=== PATIENT | female | born 1950 | race Two or more races ===

== ENCOUNTER 2017-05-30 09:01 | Day surgery (SDC) | payer OTHER ==
[2017-05-30] MEDS ORDERED: FENTAnyl 50 MCG/ML VIAL (10:34)
[2017-05-30] MEDS ORDERED: MIDAZOLAM 1 MG/ML 2 ML INJ ×2 (10:34)
== END 2017-05-30 12:05 | disposition home or self-care (01) ==
LOC: GIL 09:01
DX: Z12.11 Encounter for screening for malignant neoplasm of colon (principal); D12.0 Benign neoplasm of cecum; K64.4 Residual hemorrhoidal skin tags; E11.9 Type 2 diabetes mellitus without complications
CPT/HCPCS: 45380; 82962; 88305

== ENCOUNTER → 2017-07-21 | Outpatient (CLI) | payer OTHER | END | disposition home or self-care (01) | LOC: HKI 13:47 | DX: Z01.818 Encounter for other preprocedural examination (principal) | CPT/HCPCS: Z7500 ==

== ENCOUNTER 2017-07-24 10:36 | Inpatient (IN) | payer OTHER ==
[2017-07-24] MEDS: TRANEXAMIC ACID 1,000 MG in SOD CHLORIDE 0.9% 100 ML IV ×2 (12:00→14:00)
[2017-07-24] MEDS: CEFAZOLIN 2 GM/50 ML (PMX) 50 ML IVPB (12:00)
[2017-07-24] MEDS: LACTATED RINGER'S 1,000 ML IV* (12:00)
[2017-07-24] MEDS: ACETAMINOPHEN 1000MG/100ML IV 100 ML IVPB (12:29)
[2017-07-24] MEDS: ONDANSETRON 4 MG INJ IV ×3 (12:29→21:03)
[2017-07-24] MEDS: LANSOPRAZOLE 30 MG CAP PO (12:30)
[2017-07-24] MEDS: CELECOXIB 200 MG CAP PO (12:30)
[2017-07-24] MEDS: DEXAMETHASONE 4 MG/ML 1 ML INJ IV (12:30)
[2017-07-24] MEDS: oxyCODONE (CR) 10 MG TAB [oxyCONTIN] PO (12:31)
[2017-07-24 13:17] LABS: INR 0.93; PROTIME 12.6 Sec (11.9-14.9)
[2017-07-24 13:18] LABS: PARTIAL THROMBOPLASTIN TIME 29.3 Sec (25.0-35.0)
[2017-07-24] MEDS ORDERED: morphine SULFATE/PF (10 MG/10 ML) INJ (14:01)
[2017-07-24] MEDS ORDERED: MIDAZOLAM 1 MG/ML 2 ML INJ (14:01)
[2017-07-24] MEDS ORDERED: ONDANSETRON 4 MG INJ (14:01)
[2017-07-24] MEDS ORDERED: METOCLOPRAMIDE 10 MG INJ (14:01)
[2017-07-24] MEDS ORDERED: PROPOFOL 20 ML (14:01)
[2017-07-24] MEDS: BACITRACIN 50000 UNITS INJ IRR (14:03)
[2017-07-24] MEDS: POLYMYXIN B 500000 UNIT INJ (14:03)
[2017-07-24] MEDS: POLYMYXIN/BACITRACIN 1L IRRIG (14:03)
[2017-07-24] MEDS ORDERED: FENTAnyl 50 MCG/ML VIAL (14:26)
[2017-07-24] MEDS ORDERED: SUCCINYLCHOLINE CHLORIDE 100 MG/5 ML SYG IV (14:37)
[2017-07-24] MEDS ORDERED: PROVENTIL HFA 6.7GM INHALER (14:49)
[2017-07-24] MEDS ORDERED: ROCURONIUM 50 MG INJ (15:12)
[2017-07-24] MEDS ORDERED: EPHEDrine SULFATE 50 MG/5 ML SYG (15:12)
[2017-07-24] MEDS ORDERED: MEPERIDINE 25 MG INJ IV (15:30)
[2017-07-24] MEDS ORDERED: DIPHENHYDRAMINE 50 MG INJ IV (15:30)
[2017-07-24] MEDS ORDERED: HYDROmorphONE (0.2 MG/ML) 10ML SYG IV ×3 (15:30)
[2017-07-24] MEDS ORDERED: ALBUTEROL 0.083% (NEB) 2.5 MG/3 ML AMP HHN (15:30)
[2017-07-24] MEDS: [UNRECOGNIZED DRUG - OTHER] INJ (16:18)
[2017-07-24] MEDS ORDERED: SOD CHLORIDE 0.9% 1,000 ML IV (17:28)
[2017-07-24] MEDS ORDERED: BISACODYL 10 MG SUPP PR (17:30)
[2017-07-24] MEDS ORDERED: NALOXONE (0.4 MG/ML) INJ IV (17:30)
[2017-07-24] MEDS ORDERED: ZOLPIDEM 5 MG TAB PO (17:30)
[2017-07-24] MEDS ORDERED: TRIMETHOBENZAMIDE 100 MG/ML VIAL IM (17:30)
[2017-07-24] MEDS ORDERED: NA PHOSPHATE/BIPHOS 133 ML ENEMA PR (17:30)
[2017-07-24] MEDS ORDERED: MAGNESIUM HYDROXIDE 30ML CUP PO (17:30)
[2017-07-24] MEDS ORDERED: SENNA/DOCUSATE NA (8.6MG/50MG) TAB PO (17:30)
[2017-07-24] MEDS ORDERED: DIPHENHYDRAMINE 50 MG INJ IM (17:30)
[2017-07-24] MEDS: DOCUSATE SODIUM 100 MG CAP PO (18:48)
[2017-07-24] MEDS: ASPIRIN (EC) 325 MG TAB PO (18:49)
[2017-07-24] MEDS: CEFAZOLIN 1 GM/50 ML (PMX) 50 ML IVPB (18:50)
[2017-07-24] MEDS ORDERED: GLUCOSE GEL 15 GRAM TUBE PO ×2 (22:00)
[2017-07-24] MEDS ORDERED: GLUCOSE GEL 15 GRAM TUBE BUCCAL (22:00)
[2017-07-24] MEDS ORDERED: GLUCAGON 1 MG INJ IM (22:00)
[2017-07-24] MEDS ORDERED: DEXTROSE 50% 50 ML SYRINGE IV ×2 (22:00)
[2017-07-24] MEDS: INSULIN GLARGINE [LANtus] 3 ML PEN SC (22:35)
[2017-07-24] MEDS: INSULIN ASPART [NOVOLOG] 3 ML PEN SC (22:36)
[2017-07-24] MEDS: SOD CHLORIDE 0.9% 500 ML IV (22:37)
[2017-07-25] MEDS: ACCU-CHEK XX (02:00)
[2017-07-25] MEDS: ONDANSETRON 4 MG INJ IV ×3 (02:02→12:00)
[2017-07-25] MEDS: CEFAZOLIN 1 GM/50 ML (PMX) 50 ML IVPB ×2 (02:02→10:28)
[2017-07-25] MEDS: SOD CHLORIDE 0.9% 500 ML IV ×4 (04:27→22:49)
[2017-07-25 05:51] LABS: ADD MAN DIFF? NO
[2017-07-25 06:07] LABS: WHITE BLOOD COUNT 16.3 10^3/ul (4.8-10.8)
[2017-07-25 06:07] LABS: BASOPHILS % 0.2 % (0.0-2.0); HEMATOCRIT 34.5 % (37.0-47.0); HEMOGLOBIN 11.3 g/dl (12.0-16.0); LYMPHOCYTES # 1.8 10^3/ul (0.8-2.9); LYMPHOCYTES % 10.9 % (15.0-51.0); MEAN CORPUSCULAR HEMOGLOBIN 28.2 pg (29.0-33.0); MEAN CORPUSCULAR HGB CONC 32.8 g/dl (32.0-37.0); MEAN PLATELET VOLUME 10.8 fl (7.4-10.4); MONOCYTE # 0.9 10^3/ul (0.3-0.9); MONOCYTES % 5.6 % (0.0-11.0); NEUTROPHIL # 13.5 10^3/ul (1.6-7.5); NEUTROPHILS % 82.7 % (39.0-77.0); PLATELET COUNT 376 10^3/UL (140-415); RED BLOOD COUNT 4.01 10^6/ul (4.20-5.40); RED CELL DISTRIBUTION WIDTH 13.5 % (11.5-14.5)
[2017-07-25 06:16] LABS: ANION GAP 16 (8-16); BLOOD UREA NITROGEN 14 mg/dl (7-20); CALCIUM 8.9 mg/dl (8.4-10.2); CARBON DIOXIDE 28 mmol/L (21-31); CHLORIDE 102 mmol/L (97-110); CREATININE 0.58 mg/dl (0.44-1.00); GLUCOSE 199 mg/dl (70-220); POTASSIUM 4.9 mmol/L (3.5-5.1); SODIUM 141 mmol/L (135-144)
[2017-07-25] MEDS: PANTOPRAZOLE (EC) 40 MG TAB PO (06:44)
[2017-07-25] MEDS: BETHANECHOL 25 MG TAB PO (06:44)
[2017-07-25 08:46] LABS: ADD UMIC YES; UR ASCORBIC ACID NEGATIVE (NEGATIVE); UR BACTERIA FEW /HPF (NONE SEEN); UR BILIRUBIN (Dip) NEGATIVE (NEGATIVE); UR BLOOD (Dip) 3+ mg/dL (NEGATIVE); UR CLARITY SLIGHTLY CLOUDY (CLEAR); UR COLOR YELLOW (YELLOW); UR GLUCOSE (Dip) 1+ mg/dL (NEGATIVE); UR KETONES (Dip) NEGATIVE (NEGATIVE); UR LEUKOCYTE ESTERASE (Dip) TRACE Leu/ul (NEGATIVE); UR MUCUS FEW /HPF (NONE SEEN); UR NITRITE (Dip) NEGATIVE (NEGATIVE); UR NONSQUAMOUS EPITHELIAL CELL 1 /HPF (NONE SEEN); UR RBC > 182 /HPF (0-5); UR SPECIFIC GRAVITY (Dip) 1.027 (1.003-1.030); UR TOTAL PROTEIN (Dip) 2+ mg/dl (NEGATIVE); UR UROBILINOGEN (Dip) NEGATIVE (NEGATIVE); UR WBC 7 /HPF (0-5)
[2017-07-25] MEDS: CELECOXIB 200 MG CAP PO ×2 (08:49→20:35)
[2017-07-25] MEDS: ASPIRIN (EC) 325 MG TAB PO ×2 (08:50→20:35)
[2017-07-25] MEDS: DOCUSATE SODIUM 100 MG CAP PO ×2 (08:50→20:34)
[2017-07-25] MEDS: FERROUS FUMARATE (SR) TAB PO ×2 (08:51→20:34)
[2017-07-25] MEDS: GABAPENTIN 100 MG CAP PO ×2 (08:51→20:34)
[2017-07-25] MEDS: INSULIN ASPART [NOVOLOG] 3 ML PEN SC ×6 (08:58→20:43)
[2017-07-25] MEDS: HYDROCODONE/APAP (5/325) TAB PO ×2 (15:45→20:34)
[2017-07-25] MEDS: oxyCODONE 5 MG TAB PO (18:29)
[2017-07-25] MEDS: INSULIN GLARGINE [LANtus] 3 ML PEN SC (20:41)
[2017-07-26] MEDS: ACCU-CHEK XX (02:00)
[2017-07-26] MEDS: SOD CHLORIDE 0.9% 500 ML IV ×3 (05:04→17:34)
[2017-07-26] MEDS: PANTOPRAZOLE (EC) 40 MG TAB PO (05:27)
[2017-07-26 05:37] LABS: ADD MAN DIFF? NO
[2017-07-26 05:44] LABS: BASOPHIL # 0.1 10^3/ul (0.0-0.1); BASOPHILS % 0.5 % (0.0-2.0); EOSINOPHILS # 0.1 10^3/ul (0.0-0.5); EOSINOPHILS % 0.7 % (0.0-7.0); HEMATOCRIT 33.7 % (37.0-47.0); LYMPHOCYTES # 2.2 10^3/ul (0.8-2.9); LYMPHOCYTES % 18.9 % (15.0-51.0); MEAN CORPUSCULAR HEMOGLOBIN 28.1 pg (29.0-33.0); MEAN CORPUSCULAR HGB CONC 32.6 g/dl (32.0-37.0); MEAN PLATELET VOLUME 10.8 fl (7.4-10.4); MONOCYTE # 1.2 10^3/ul (0.3-0.9); MONOCYTES % 10.4 % (0.0-11.0); NEUTROPHIL # 8.2 10^3/ul (1.6-7.5); NEUTROPHILS % 69.2 % (39.0-77.0); PLATELET COUNT 335 10^3/UL (140-415); RED BLOOD COUNT 3.92 10^6/ul (4.20-5.40); RED CELL DISTRIBUTION WIDTH 13.7 % (11.5-14.5)
[2017-07-26 05:44] LABS: WHITE BLOOD COUNT 11.9 10^3/ul (4.8-10.8)
[2017-07-26 06:09] LABS: ANION GAP 11 (8-16); BLOOD UREA NITROGEN 14 mg/dl (7-20); CALCIUM 8.8 mg/dl (8.4-10.2); CARBON DIOXIDE 32 mmol/L (21-31); CHLORIDE 104 mmol/L (97-110); GLUCOSE 119 mg/dl (70-220); POTASSIUM 4.3 mmol/L (3.5-5.1); SODIUM 143 mmol/L (135-144)
[2017-07-26] MEDS: INSULIN ASPART [NOVOLOG] 3 ML PEN SC ×6 (07:50→18:13)
[2017-07-26] MEDS: HYDROCODONE/APAP (5/325) TAB PO ×2 (08:16→20:21)
[2017-07-26] MEDS: GABAPENTIN 100 MG CAP PO (08:16)
[2017-07-26] MEDS: CELECOXIB 200 MG CAP PO (08:16)
[2017-07-26] MEDS: DOCUSATE SODIUM 100 MG CAP PO (08:16)
[2017-07-26] MEDS: ASPIRIN (EC) 325 MG TAB PO (08:16)
[2017-07-26] MEDS: FERROUS FUMARATE (SR) TAB PO (08:17)
[2017-07-26] MEDS: oxyCODONE 5 MG TAB PO ×3 (10:19→18:18)
== END 2017-07-26 20:33 | DRG 470 ==
LOC: REC 10:36 → MS1 19:43
PROC: 0SRC0J9 Replacement of Right Knee Joint with Synthetic Substitute, Cemented, Open Approach (ICD-10-PCS; principal; 2017-07-24 13:30)
PROC: 8E0YXBZ Computer Assisted Procedure of Lower Extremity (ICD-10-PCS; 2017-07-24 13:30)
DX: M17.11 Unilateral primary osteoarthritis, right knee (principal); I10 Essential (primary) hypertension; E11.9 Type 2 diabetes mellitus without complications; R82.99 Other abnormal findings in urine; Z79.84 Long term (current) use of oral hypoglycemic drugs
CPT/HCPCS: 73560; 80048; 81001; 82962; 85025; 85610; 85730; 86850; 86900; 86901; 87086; 88304; 88311; 97110; 97116; 97162; 97165; 97530

== ENCOUNTER → 2017-08-11 | Outpatient (CLI) | payer OTHER | END | disposition home or self-care (01) | LOC: HKI 10:07 | DX: Z47.1 Aftercare following joint replacement surgery (principal); Z96.651 Presence of right artificial knee joint ==

== ENCOUNTER → 2017-09-15 | Outpatient (CLI) | payer OTHER | END | disposition home or self-care (01) | LOC: HKI 10:41 | DX: Z09 Encounter for follow-up examination after completed treatment for conditions other than malignant neoplasm (principal); Z96.651 Presence of right artificial knee joint; M25.561 Pain in right knee | CPT/HCPCS: 73562; 73562-RT ==

== ENCOUNTER → 2017-11-03 | Outpatient (CLI) | payer OTHER | END | disposition home or self-care (01) | LOC: HKI 10:16 | DX: Z09 Encounter for follow-up examination after completed treatment for conditions other than malignant neoplasm (principal); Z96.651 Presence of right artificial knee joint | CPT/HCPCS: 73562; 73562-RT ==

== ENCOUNTER → 2018-01-12 | Outpatient (CLI) | payer MEDICARE, OTHER | END | disposition home or self-care (01) | LOC: HKI 11:42 | DX: M16.12 Unilateral primary osteoarthritis, left hip (principal) | CPT/HCPCS: 73502 ==

== ENCOUNTER → 2018-07-21 | Outpatient (CLI) | payer OTHER, MEDICARE | END | disposition home or self-care (01) | LOC: HKI 13:49 | DX: Z01.818 Encounter for other preprocedural examination (principal) | CPT/HCPCS: G0463 ==

== ENCOUNTER 2018-07-22 06:13 | Inpatient (IN) | payer OTHER, MEDICARE ==
[~2018-07-22 06:13] MED LIST: CEFAZOLIN 2 GM/50 ML (PMX) 50 ML IVPB
[2018-07-22] MEDS ORDERED: DESFLURANE 15 MIN (07:00)
[2018-07-22] MEDS ORDERED: CEFAZOLIN 1 GM INJ (07:22)
[2018-07-22] MEDS ORDERED: GLYCOPYRROLATE 0.4 MG INJ (07:22)
[2018-07-22] MEDS ORDERED: ROCURONIUM 50 MG INJ (07:22)
[2018-07-22] MEDS ORDERED: PROPOFOL 20 ML (07:22)
[2018-07-22] MEDS ORDERED: FENTAnyl 50 MCG/ML VIAL (07:23)
[2018-07-22] MEDS ORDERED: DEXAMETHASONE 4 MG/ML 5 ML INJ (07:23)
[2018-07-22] MEDS ORDERED: morphine SULFATE/PF (10 MG/10 ML) INJ (07:23)
[2018-07-22] MEDS ORDERED: MIDAZOLAM 1 MG/ML 2 ML INJ (07:23)
[2018-07-22] MEDS ORDERED: ONDANSETRON 4 MG INJ (07:23)
[2018-07-22] MEDS ORDERED: OXYCODONE/ACETAMINOPHEN (5/325) TAB PO ×2 (07:30)
[2018-07-22] MEDS ORDERED: EPHEDrine SULFATE 50 MG/5 ML SYG IV (07:30)
[2018-07-22] MEDS ORDERED: ONDANSETRON 4 MG INJ IV ×2 (07:30)
[2018-07-22] MEDS ORDERED: LABETALOL HCL 20MG INJ IV (07:30)
[2018-07-22] MEDS ORDERED: ZOLPIDEM 5 MG TAB PO (07:30)
[2018-07-22] MEDS ORDERED: HYDROmorphONE 1 MG/5 ML IV SYRINGE IV ×2 (07:30)
[2018-07-22] MEDS ORDERED: MEPERIDINE 25 MG INJ IV (07:30)
[2018-07-22] MEDS ORDERED: NALOXONE (0.4 MG/ML) INJ IV ×2 (07:30→09:30)
[2018-07-22] MEDS ORDERED: NALBUPHINE HCL (10 MG/1 ML) INJ IV (07:30)
[2018-07-22] MEDS ORDERED: MIDAZOLAM 1 MG/ML 2 ML INJ IV (07:30)
[2018-07-22] MEDS ORDERED: ALBUTEROL 0.083% (NEB) 2.5 MG/3 ML AMP HHN (07:30)
[2018-07-22] MEDS ORDERED: morphine 2 MG INJ IV ×2 (07:30)
[2018-07-22] MEDS ORDERED: DIPHENHYDRAMINE 50 MG INJ IV ×2 (07:30)
[2018-07-22] MEDS ORDERED: FENTAnyl 50 MCG/ML VIAL IV (07:30)
[2018-07-22] MEDS ORDERED: TRIMETHOBENZAMIDE 100 MG/ML VIAL IM ×2 (07:30)
[2018-07-22] MEDS ORDERED: IPRATROPIUM (NEB) 0.5 MG/2.5 ML AMP HHN (07:30)
[2018-07-22] MEDS ORDERED: hydrALAzine 20 MG INJ IV (07:30)
[2018-07-22] MEDS: TRANEXAMIC ACID 1GM/100ML(PMX) 100 ML IV (08:15)
[2018-07-22] MEDS: TRANEXAMIC ACID 1,000 MG in NS 100 ML IV (09:00)
[2018-07-22] MEDS ORDERED: METOCLOPRAMIDE 10 MG INJ (09:30)
[2018-07-22] MEDS ORDERED: HYDROCODONE/APAP (5/325) TAB PO (09:30)
[2018-07-22] MEDS ORDERED: KETOROLAC 15 MG INJ IV (09:30)
[2018-07-22] MEDS ORDERED: NACL 0.9% 3 ML SYG IV (09:30)
[2018-07-22] MEDS: POLYMYXIN B 500000 UNIT INJ (09:40)
[2018-07-22] MEDS: BACITRACIN 50000 UNITS INJ (09:40)
[2018-07-22] MEDS: ONDANSETRON 4 MG INJ IV ×3 (10:11→20:56)
[2018-07-22] MEDS: CEFAZOLIN 2 GM/50 ML (PMX) 50 ML IVPB ×2 (10:20→17:11)
[2018-07-22] MEDS: HYDROmorphONE 1 MG/5 ML IV SYRINGE IV ×3 (10:20→10:34)
[2018-07-22] MEDS: FENTAnyl 50 MCG/ML VIAL IV ×3 (10:21→10:36)
[2018-07-22] MEDS ORDERED: GLUCOSE GEL 15 GRAM TUBE BUCCAL (12:30)
[2018-07-22] MEDS ORDERED: DEXTROSE 50% 50 ML SYRINGE IV ×2 (12:30)
[2018-07-22] MEDS ORDERED: GLUCAGON 1 MG INJ IM (12:30)
[2018-07-22] MEDS ORDERED: GLUCOSE GEL 15 GRAM TUBE PO ×2 (12:30)
[2018-07-22] MEDS: GABAPENTIN 100 MG CAP PO ×2 (13:38→20:56)
[2018-07-22] MEDS ORDERED: HIP PAIN COCKTAIL VANCO INJ (16:00)
[2018-07-22] MEDS: INSULIN ASPART [NOVOLOG] 3 ML PEN SC ×2 (18:16→20:58)
[2018-07-23] MEDS: CEFAZOLIN 2 GM/50 ML (PMX) 50 ML IVPB (01:35)
[2018-07-23] MEDS: ACCU-CHEK XX (01:38)
[2018-07-23] MEDS: ONDANSETRON 4 MG INJ IV (04:57)
[2018-07-23] MEDS: PANTOPRAZOLE (EC) 40 MG TAB PO (04:58)
[2018-07-23 06:18] LABS: ADD MAN DIFF? NO
[2018-07-23 06:31] LABS: WHITE BLOOD COUNT 11.9 10^3/ul (4.8-10.8)
[2018-07-23 06:31] LABS: BASOPHILS % 0.3 % (0.0-2.0); HEMATOCRIT 29.9 % (37.0-47.0); HEMOGLOBIN 9.6 g/dl (12.0-16.0); LYMPHOCYTES # 2.1 10^3/ul (0.8-2.9); LYMPHOCYTES % 17.5 % (15.0-51.0); MEAN CORPUSCULAR HGB CONC 32.1 g/dl (32.0-37.0); MEAN CORPUSCULAR VOLUME 84.2 fl (82.0-101.0); MEAN PLATELET VOLUME 10.7 fl (7.4-10.4); MONOCYTE # 1.3 10^3/ul (0.3-0.9); MONOCYTES % 10.9 % (0.0-11.0); NEUTROPHIL # 8.4 10^3/ul (1.6-7.5); NEUTROPHILS % 70.9 % (39.0-77.0); PLATELET COUNT 327 10^3/UL (140-415); RED BLOOD COUNT 3.55 10^6/ul (4.20-5.40); RED CELL DISTRIBUTION WIDTH 14.2 % (11.5-14.5)
[2018-07-23 06:39] LABS: INR 1.01; PROTIME 13.4 Sec (11.9-14.9)
[2018-07-23 06:49] LABS: ANION GAP 8 (5-13); BLOOD UREA NITROGEN 15 mg/dl (7-20); CALCIUM 8.9 mg/dl (8.4-10.2); CARBON DIOXIDE 29 mmol/L (21-31); CHLORIDE 99 mmol/L (97-110); CREATININE 0.63 mg/dl (0.44-1.00); Estimated GFR > 60 mL/min (>60); GLUCOSE 127 mg/dl (70-220); POTASSIUM 4.5 mmol/L (3.5-5.1); SODIUM 136 mmol/L (135-144)
[2018-07-23 07:01] LABS: CHOL/HDL RATIO 2.5 RATIO; HDL CHOLESTEROL 47 mg/dl (35-98); LDL CHOLESTEROL,CALCULATED 49 mg/dl; TRIGLYCERIDES 116 mg/dl (0-149)
[2018-07-23 07:01] LABS: CHOLESTEROL 119 mg/dl (100-200)
[2018-07-23 07:17] LABS: HEMOGLOBIN A1C 7.1 % (0-5.9)
[2018-07-23] MEDS: INSULIN ASPART [NOVOLOG] 3 ML PEN SC ×3 (07:50→17:55)
[2018-07-23] MEDS: oxyCODONE 5 MG TAB PO ×3 (08:41→19:30)
[2018-07-23] MEDS: CELECOXIB 100 MG CAP PO (08:42)
[2018-07-23] MEDS: ASPIRIN (EC) 81 MG TAB PO (08:42)
[2018-07-23] MEDS: metFORMIN 500 MG TAB PO ×2 (08:42→17:58)
[2018-07-23] MEDS: GABAPENTIN 100 MG CAP PO ×2 (08:42→13:44)
[2018-07-23] MEDS: LINAGLIPTIN 5 MG TABLET PO (08:42)
[2018-07-23] MEDS: AMLODIPINE 5 MG TAB PO (08:42)
== END 2018-07-23 20:27 | DRG 470 ==
LOC: REC 06:13 → MS1 12:06
PROVIDERS: Orthopaedic Surgery Adult Reconstructive Orthopaedic Surgery
PROC: 0SRB04A Replacement of Left Hip Joint with Ceramic on Polyethylene Synthetic Substitute, Uncemented, Open Approach (ICD-10-PCS; principal; 2018-07-22 07:22)
PROC: 8E0YXBZ Computer Assisted Procedure of Lower Extremity (ICD-10-PCS; 2018-07-22 07:22)
DX: M16.12 Unilateral primary osteoarthritis, left hip (principal); E66.9 Obesity, unspecified; E11.9 Type 2 diabetes mellitus without complications; Z68.30 Body mass index [BMI] 30.0-30.9, adult
CPT/HCPCS: 72170; 73500; 73530; 80048; 80061; 82962; 83036; 85025; 85610; 86850; 86900; 86901; 88304; 88311; 97116; 97161; 97167

== ENCOUNTER → 2018-08-11 | Outpatient (CLI) | payer MEDICARE, OTHER | END | disposition home or self-care (01) | LOC: HKI 15:30 | DX: Z47.1 Aftercare following joint replacement surgery (principal); Z96.642 Presence of left artificial hip joint ==